=== PATIENT | female | born 2000 | race Caucasian/White ===

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

== ENCOUNTER 2020-05-13 19:09 | Emergency (ER) | payer SELFPAY ==
[~2020-05-13] VITALS: Ht 157.5 cm; Wt 58.5 kg
--- NOTE | 2020-05-13 19:19 | NUR ---
PATIENT AMBULATED FROM TRIAGE TO ROOM WITHOUT ASSISTANCE, PLACED IN GOWN, CALL [place] WITHIN REACH, UTILIZING B/P AND SPO2 MONITOR.
--- NOTE | 2020-05-13 19:35 | NUR ---
TASK RN: PT TAKEN TO US IN STABLE CONDITION.
[2020-05-13 20:53] LABS: BASOPHILS % (AUTO) 1 % (0-1); EOSINOPHILS % (AUTO) 1 % (1-7); LYMPHOCYTES % (AUTO) 25 % (22-44); MEAN CORPUSCULAR HEMOGLOBIN 18.7 pg (27.0-34.8); MEAN PLATELET VOLUME 7.5 fL (7.4-10.4); MONOCYTES % (AUTO) 6 % (2-9); NEUTROPHILS % (AUTO) 68 % (42-75); PLATELET COUNT 484 x10^3/uL (130-400); RED BLOOD COUNT 3.45 x10^6/uL (3.82-5.3); RED CELL DISTRIBUTION WIDTH 18.2 % (9.6-15.2)
[2020-05-13 21:01] LABS: ALBUMIN 4.2 g/dL (3.4-5.0); ANION GAP 6 mmol/L (5-15); CHLORIDE 110 mmol/L (98-107); CREATININE 0.67 mg/dL (0.55-1.02)
[2020-05-13 21:10] LABS: MEAN CORPUSCULAR HGB CONC 29.5 g/dL (32.4-35.8)
[2020-05-13 21:43] LABS: MD MORPH REVIEW ONLY
[2020-05-13 21:44] LABS: ANISOCYTOSIS 1+; HYPOCHROMIA 1+; MICROCYTOSIS 2+; OVALOCYTES 1+; POLYCHROMASIA 1+
[2020-05-13 21:45] LABS: <PLATELET ESTIMATE> INCREASED; <PLT MORPHOLOGY> NORMAL PLT MORPH
[2020-05-13 22:07] LABS: MICROSCOPIC NOT IND
--- NOTE | 2020-05-13 22:11 | NUR ---
VERIFIED BLOOD WITH DEEPA CARDOZA PRIOR TO START AT THIS TIME.
[2020-05-13 22:15] VITALS: BP 106/54
[2020-05-13 22:30] VITALS: BP 101/58
[2020-05-13 22:45] VITALS: BP 99/51
[2020-05-14 01:35] VITALS: BP 100/51
== END 2020-05-14 01:38 | disposition home or self-care (01) ==
LOC: ED 05-14 01:26
DX: O99.011 Anemia complicating pregnancy, first trimester (principal); D50.9 Iron deficiency anemia, unspecified; R10.9 Unspecified abdominal pain; Z3A.01 Less than 8 weeks gestation of pregnancy
CPT/HCPCS: 36415; 36430; 76801; 80048; 81003; 82040; 84702; 85025; 86850; 86900; 86923; 99285; P9016